=== PATIENT | female | born 1945 | race Two or more races ===

== ENCOUNTER 2018-01-25 13:15 | Outpatient (RCR) | payer OTHER | END 2018-02-17 | disposition home or self-care (01) | LOC: PTY 13:15 | DX: M54.42 Lumbago with sciatica, left side (principal); R27.8 Other lack of coordination | CPT/HCPCS: 97110; 97162; G0283 ==

== ENCOUNTER 2018-02-26 08:15 | Outpatient (RCR) | payer OTHER | END 2018-03-19 | disposition home or self-care (01) | LOC: PTY 08:15 | DX: M54.42 Lumbago with sciatica, left side (principal); R27.8 Other lack of coordination; I10 Essential (primary) hypertension; R27.0 Ataxia, unspecified; Z85.51 Personal history of malignant neoplasm of bladder ==

== ENCOUNTER 2018-03-29 11:20 | Outpatient (RCR) | payer OTHER | END 2018-04-19 | disposition home or self-care (01) | LOC: PTY 11:20 | DX: M54.42 Lumbago with sciatica, left side (principal); R27.8 Other lack of coordination | CPT/HCPCS: 97032; 97110; 97140; G0283 ==

== ENCOUNTER 2018-04-23 10:10 | Outpatient (RCR) | payer OTHER | END 2018-05-19 | disposition home or self-care (01) | LOC: PTY 10:10 | DX: M54.42 Lumbago with sciatica, left side (principal); R27.8 Other lack of coordination ==